=== PATIENT | female | born 1960 | race Caucasian/White ===

== ENCOUNTER → 2024-12-23 10:47 | Outpatient (CLI) | payer OTHER, SELFPAY ==
--- NOTE | 2024-12-23 11:00 | EKG_ITS ---
[facility] [address] [place] [address] Test Date: 2024-12-23 Pat Name: Chikis Jefferson Department: Room: Gender: Female [employer]: : [id number] Requested By: Order Number: [id number] Reading MD: Kishan Lara Measurements Intervals [place] Rate: 68 P: 60 MD: 174 QRS: 58 QRSD: 82 T: 73 QT: 402 QTc: 427 Interpretive Statements Normal sinus rhythm Electronically Signed On 12-23-2024 14:01:52 PDT by Kishan Lara
[2024-12-23 12:52] LABS: Hemoglobin A1C% w Est Avg Glu 5.7 % (4.0-6.0)
[2024-12-23 13:01] LABS: Chloride 106 mmol/L (98-107); HEMOLYSIS < 15 (0-50)
[2024-12-23 13:02] LABS: Albumin 4.5 g/dL (3.5-5.0); BUN Creatinine Ratio 27.7 (6-22); Blood Urea Nitrogen 13 mg/dL (7-17); Calcium 9.3 mg/dL (8.4-10.2); Carbon Dioxide 26 mmol/L (22-32); Estimated Glomerular Filt Rate > 60 mL/min (>60); Glucose 106 mg/dL (70-99); Potassium 3.7 mmol/L (3.4-5.1); Sodium 139 mmol/L (137-145)
[2024-12-23 13:09] LABS: Prealbumin 32.8 mg/dL (17.6-36.0)
[2024-12-23 13:22] LABS: Add Manual Diff / Slide Review NO; Basophils Absolute Auto 0 /uL (0-100); Basophils Percent Auto 0.9 % (0-2); Eosinophils Absolute Auto 100 /uL (0-450); Hematocrit 39.3 % (36-46); Lymphocytes Absolute Auto 400 /uL (1100-4500); Lymphocytes Percent Auto 13.7 % (25-40); Mean Corpuscular HGB Conc 33.1 % (30-36); Mean Corpuscular Hemoglobin 28.5 PG (26-34); Mean Corpuscular Volume 86.1 fL (80-100); Monocytes Absolute Auto 300 /uL (0-900); Monocytes Percent Auto 8.1 % (3-14); Neutrophils Absolute Auto 2400 /uL (1500-7000); Neutrophils Percent Auto 75.3 % (50-75); Platelet Count 89 X10^3/uL (150-400); Red Blood Cell Count 4.57 X10^6/uL (4.0-5.2); White Blood Cell Count 3.2 X10^3/uL (4.5-11.0)
[2024-12-23 15:49] LABS: Vitamin D 25 Hydroxy (D3) 76.4 ng/mL (30.0-100.0)
== END ==
PROVIDERS: Family Provider Family Medicine; PCP Physician Assistant; Referring Provider Orthopaedic Surgery Adult Reconstructive Orthopaedic Surgery; Visit Provider Orthopaedic Surgery Adult Reconstructive Orthopaedic Surgery
DX: Z01.818 Encounter for other preprocedural examination (principal); M16.11 Unilateral primary osteoarthritis, right hip; Z68.33 Body mass index [BMI] 33.0-33.9, adult
CPT/HCPCS: 36415; 73502; 80048; 82040; 82306; 83036; 84134; 85025; 93005; 99214